=== PATIENT | male | born 1965 | race Caucasian/White ===

== ENCOUNTER 2017-03-22 11:54 | Emergency (ER) | payer OTHER ==
[~2017-03-22] VITALS: Ht 170.2 cm; Wt 71.4 kg
[2017-03-22] MEDS ORDERED: KETOROLAC TROMETHAMINE 30 MG/ML VIAL IM ONE (13:00)
[2017-03-22 14:52] VITALS: BP 133/71
== END 2017-03-22 14:55 | disposition home or self-care (01) ==
LOC: EMS 11:55
DX: S60.221A Contusion of right hand, initial encounter (principal); M25.562 Pain in left knee; M79.671 Pain in right foot; I10 Essential (primary) hypertension; W01.0XXA Fall on same level from slipping, tripping and stumbling without subsequent striking against object, initial encounter; Y93.89 Activity, other specified; Y92.198 Other place in other specified residential institution as the place of occurrence of the external cause; Y99.8 Other external cause status
CPT/HCPCS: 73110; 99284; J1885

== ENCOUNTER 2017-09-16 10:01 | Emergency (ER) | payer OTHER ==
[~2017-09-16] VITALS: Ht 167.6 cm; Wt 64.0 kg
[2017-09-16 11:33] VITALS: BP 110/66
== END 2017-09-16 12:31 | disposition home or self-care (01) ==
LOC: EMS 10:01
DX: S83.412A Sprain of medial collateral ligament of left knee, initial encounter (principal); M67.431 Ganglion, right wrist; W01.0XXA Fall on same level from slipping, tripping and stumbling without subsequent striking against object, initial encounter; Y93.89 Activity, other specified; Y92.830 Public park as the place of occurrence of the external cause; Y99.8 Other external cause status
CPT/HCPCS: 99284

== ENCOUNTER 2019-01-31 18:08 | Emergency (ER) | payer OTHER ==
[~2019-01-31] VITALS: Ht 167.6 cm; Wt 63.6 kg
[2019-01-31 19:03] VITALS: BP 100/63
== END 2019-01-31 21:00 | disposition left against medical advice (07) ==
LOC: EMS 18:09
DX: M79.672 Pain in left foot (principal); Z53.21 Procedure and treatment not carried out due to patient leaving prior to being seen by health care provider

== ENCOUNTER 2021-06-10 22:10 | Emergency (ER) | payer OTHER ==
[~2021-06-10] VITALS: Ht 162.6 cm; Wt 70.5 kg
[2021-06-10 23:45] VITALS: BP 127/66
[2021-06-11] MEDS ORDERED: PERTUSS(ACELL),DIPH,TET VAC/PF 0.5 ML SYRINGE IM. ONE (01:00)
== END 2021-06-11 01:30 | disposition home or self-care (01) ==
LOC: EMS 22:11
DX: S91.331A Puncture wound without foreign body, right foot, initial encounter (principal); W45.0XXA Nail entering through skin, initial encounter; Y93.89 Activity, other specified; Y92.89 Other specified places as the place of occurrence of the external cause; Y99.8 Other external cause status
CPT/HCPCS: 90471; 90715; 99283